=== PATIENT | female | born 1960 | race Caucasian/White ===

== ENCOUNTER 2019-06-21 07:49 | Outpatient (RCR) | payer MEDICAID, SELFPAY ==
--- NOTE | 2019-06-29 14:29 | HP.OTFCE_ITS ---
HP OT Functional Capacity Eval - Task Lift Floor (Occasional 1-33% of Day): 2lb Floor (Frequent 34-66% of Day): Negligible Floor (Constant 67-100% of Day): Negligible Floor PDL: Sedentary Knee (Occasional 1-33% of Day): 2lb Knee (Frequent 34-66% of Day): Negligible Knee (Constant 67-100% of Day): Negligible Knee PDL: Sedentary Waist (Occasional 1-33% of Day): 15lb Waist (Frequent 34-66% of Day): 8lb Waist (Constant 67-100% of Day): Negligible Waist PDL: Sedentary-Light Shoulder (Occasional 1-33% of Day): 2lb Shoulder (Frequent 34-66% of Day): Negligible Shoulder (Constant 67-100% of Day): Negligible Shoulder PDL: Sedentary Overhead (Occasional 1-33% of Day): 0 Overhead (Frequent 34-66% of Day): 0 Overhead (Constant 67-100% of Day): 0 Comments: refused to complete overhead lift. - Work Activity/Posture Bending: Occasional Ability (1-33% of day) Squatting: Occasional Ability (1-33% of day) Kneeling: Occasional Ability (1-33% of day) Reaching out: Occasional Ability (1-33% of day) Reaching up: Occasional Ability (1-33% of day) Sitting: Frequent Ability (34-66% of day) Walking: Frequent Ability (34-66% of day) Standing: Occasional Ability (1-33% of day) - Reference Duration Sedentary Sedentary Light Light Light Medium Medium Medium Heavy Very Heavy Heavy Occasional (0-33% of day) Frequent (34-66% of day) Constant (67-100% of day) 10 # Negligible Negligible 15 # 8 # Negligible 20 # 10# Negli. 35 # 18 # 7 # 50 # 25 # 10 # 75 # 100 # >100 # 38 # 50 # >50 # 15 # 20 # >20 # - Patient Information Height: 5 ft 5 in Weight:: 96.615 kg Hand Dominance: Right - Medical History Medical History Including Restrictions: Pt reports the following: cervical cancer, historectomy, toncilectomy, chronic thoracic back pain, transitional vertebra, ankle instability, fx R ankle with 6' plate 17 screws, chronic low back pain. Work accident May 09, 2010 resident fell as she was lifting them from toilet and she fell with resident - Diagnoses Diagnoses: Pt reports the following: cervical cancer, historectomy, toncilectomy, chronic thoracic back pain, transitional vertebra, ankle instability, fx R ankle with 6' plate 17 screws, chronic low back pain. - Symptoms Symptoms: Pt reports; burning, stabbing pain in base of spine constantly, pain goes over L shoulder primarily and makes hands go numb. Throbbing pain R ankle, states some screws are starting to come out. - Pain Pain: Pt reports 9/10 base of back burning, stabbing pain. R ankle throbbing pain constantly. 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 - ADLS ADLS: Pt lives in manufactored home 1 floor with 2 steps to enter w/ banister on 1 side. Lives alone, daughter lives behind her if would need help. Indep w/ BADLs, laundry, light housecleaning and simple meal prep tasks, children complete heavy meal prep. Family completes vaccuming and heavy cleaning. Tub/shower w/ grab bars, std toilet seats. AMB no device primarily and quad cane if R ankle is very sore. Pt drives. Daugters complete grocery shopping secondary to pt is to painful in back to make it through store. - Physical Examination ROM: BUE WFL, BLE WFL Strength: R UE 4/5, L UE 4-/5, R LE 4-/5, L LE 3+/5 Right Cocktail Server Strength Average: 22.66 Left Cocktail Server Strength Average: 11.66 Right Lateral Pinch Average: 4.66 Left Lateral Pinch Average: 2.33 Right Tripod Pinch Average: 7.00 Left Tripod Pinch Average: 4.33 Comments: Pt states pain L wrist with tripod pinch 8/10 sharp pain. Sensation: Numbness and tingling bilateral hands. States hands constantly feel like they are asleep. States arms are sometimes numb too. Monofilament test: R hand 2.44, L hand 2.44 Fine Motor: Occassionally has trouble with buttons and handwriting, pending if hands are tingling, R MF will cramp bad. 9 hole peg test Right hand 19.3 seconds, Left hand 21.6 seconds. Balance: Pt states has 2-3 falls a week, bathroom, out in yard, states R foot feels like it's not there. - Non Material Handling Activities Bendinx, 7x down to floor, pt states to dizzy to continue any further. Squattin x less than half way down, 5x less than half way down while using L hand supported on desk and using R hand on chair handrail to support self while standing. Pt unable to complete all squats secondary to increased back pain. Kneeling: able to complete 1x using L hand supported unable to complete any more secondary to decreased stability of R ankle. Reaching out/up: Reaching up while standing 1x, 10x, 5x fast, unable to complete 5 more at fast pace secondary to back pain. Reaching out to left and right side while standing 1x, 10x, 5x fast, unable to complete all reaching out while standing secondary to back pain. Walking: Completed 15 minute walk test around facility w/o rest break needed, after walk 10/10 back pain per pt. Standing: Pt able to stand for a few minutes at a time during evaluation. Sitting: Pt able to sit for 17 minutes in one sitting during beginning of evaluation, moving around in chair frequently for increased comfort through-out session. Climbing Stairs: Pt able to climb flight of 10 steps reciprocal movement holding onto bilateral handrails. - Dynamic Occasional Lifting Capacity Floor Lift: 2lb max Knee Lift: 2lb max Waist Lift: 15lb max Shoulder Lift: 2lb max Overhead Lift: refused to complete Carryinlb max Comments: Pt states baby is 14# and unable to lift her at home.
== END 2019-06-21 19:00 | disposition home or self-care (01) ==
LOC: OT 07:49
PROVIDERS: Family Provider Family Medicine; PCP Family Medicine; Visit Provider Physician Assistant
DX: M54.6 Pain in thoracic spine (principal); Q76.49 Other congenital malformations of spine, not associated with scoliosis; M25.371 Other instability, right ankle; M54.5 Low back pain; G89.29 Other chronic pain
CPT/HCPCS: 97165; 97167

== ENCOUNTER 2022-01-16 12:22 | Emergency (ER) | payer MEDICAID, SELFPAY ==
[2022-01-16 12:22] VITALS: BP 161/98; PULSE 90; RESP 18; TEMP 35.9; O2SAT 94; BMI 33.7
[2022-01-16 13:00] LABS: Mucous, Urine 0 SEEN /hpf (<or=2+); Squamous Epithelial Cells - UA 0 SEEN /hpf (5-10)
[2022-01-16 13:03] LABS: Color, Urine Yellow (Yellow); Glucose, Dipstick Normal (Normal); Ketone-Dipstick Negative (Negative); Leukocyte Esterase-Dipstick 25 /ul (Negative); Nitrite-Dipstick Negative (Negative); Occult Blood-Urine 250 /ul (Negative); Protein-Dipstick 30 mg/dl (Negative); Urine Bilirubin Dipstick Negative (Negative); Urine Clarity Sl. Cloudy (Clear); Urine Urobilinogen Normal (Normal)
[2022-01-16 13:15] LABS: Bacteria 1+ /hpf (None Seen); Red Blood Cells-Urine 25-50 SEEN /hpf (0-5); White Blood Cells 0-5 SEEN /hpf (0-5)
--- NOTE | 2022-01-16 13:42 | CT_ITS ---
STUDY: CT ABDOMEN AND PELVIS WITHOUT CONTRAST REASON FOR EXAM: Female, 61 years old. Kidney Stone RADIATION DOSAGE (If Supplied By Facility): CTDIvol = ( 16.36 ) mGy, DLP = ( 829.94 ) mGycm TECHNIQUE: Transaxial images were obtained from the dome of the diaphragm to the symphysis pubis without oral contrast, and without intravenous contrast. Sagittal and coronal images were reconstructed. Individualized dose optimization techniques were used for this CT. COMPARISON: None. FINDINGS: The visualized lung bases are unremarkable. The visualized portions of the heart are within normal limits. Normal liver. There are multiple gallstones. Normal spleen. Normal pancreas. Normal bilateral adrenal glands. Mild to moderate degree of right hydronephrosis with right perinephric and periureteric stranding due to a 7.7 mm calculus in the proximal portion of the right ureter causing obstruction. This also evidence of a 6.2 mm calculus in the proximal ureter just distal to the previously mentioned calculus. Tiny nonobstructive calculi in the lower pole calyx of the right kidney. Normal left kidney. There is a small hiatal hernia. Normal small intestine. There are multiple colonic diverticula consistent with diverticulosis. There is non-visualization of the appendix. There is diffuse atherosclerotic calcification of the abdominal aorta, without a demonstrated aneurysm. Normal inferior vena cava. Normal retroperitoneum. Normal urinary bladder. There is absence of the uterus consistent with a prior hysterectomy. Normal abdominal wall. There are mild degenerative changes of the visualized lumbar spine. CT/Abdomen/Pelvis without Cont IMPRESSION: There are 2 adjacent right ureteral proximal calculi causing obstruction with hydronephrosis of the right kidney. The larger calculus measures 7.7 mm. Nonobstructive calculi are seen in the lower pole calyx of the right kidney. Sigmoid diverticulosis. Multiple gallstones. Electronically Signed: Clem Jasmine MD at 14:06 EDT ,
[2022-01-16 13:54] LABS: Absolute Lymphocyte Count 2.87 X10^3/uL (0.83-4.51); Absolute Neutrophil Count 7.6 X10^3/uL (2.0-7.7); Basophil# 0.06 X10^3/uL; Basophil% 0.5 % (0-1); Eosinophil# 0.16 X10^3/uL; Eosinophils% 1.4 % (0-5); Hematocrit 42.3 % (37-47); Hemoglobin 14.5 g/dL (12.0-15.0); Lymphocyte # 2.87 X10^3/ul (0.83-4.51); Mean Corp Hgb Conc 34.3 g/dL (32-36); Mean Corpuscular Hgb 27.7 pg (27.0-32.0); Mean Corpuscular Volume 80.7 fL (81-99); Mean Platelet Vol. 8.7 fl (6.2-12.0); Monocyte# 0.71 X10^3/uL; Monocyte% 6.2 % (0-10); NRBC Flagged by Analyzer 0 % (0-5); Neutrophil # 7.64 X10^3/uL (2.7-7.7); Neutrophil % 66.4 % (47-70); Platelet Count 423 K/mm3 (150-450); RBC Distribution Width CV 14.4 % (11.6-14.6); RBC Distribution Width SD 42.1 fl (35.1-43.9); Red Blood Count 5.24 M/mm3 (4.2-5.4); White Blood Count 11.5 K/mm3 (4.4-11.0)
[2022-01-16] MEDS: Ketorolac 15 MG/ML Vial IV (14:01)
[2022-01-16] MEDS: Morphine 4 MG/ML Syringe IV ×2 (14:01→16:02)
[2022-01-16] MEDS: Ondansetron 4 MG/2 ML Vial IV (14:01)
[2022-01-16 14:06] LABS: Anion Gap 2 (5-15); BUN 14 mg/dL (7-18); BUN/Creat Ratio 16.6 RATIO (10-20); Calcium,Total 9.2 mg/dL (8.5-10.1); Chloride 110 mmol/L (98-107); Creatinine, Serum 0.84 mg/dL (0.55-1.02); EST Glomerular Filtration Rate 73 mL/min (>60); Est Glom Filt Rate - Afr Amer 88 mL/min (>60); Estimated Creatinine Clearance 64.09 ml/min; Glucose 110 mg/dL (74-106); Sodium Level 141 mmol/L (136-145)
[2022-01-16 15:15] LABS: Lipase 89 U/L (73-393)
[2022-01-16 15:17] LABS: AST(SGOT) 19 U/L (15-37); Alanine Aminotransfer ALT/SGPT 28 U/L (13-56); Albumin, Serum 3.4 g/dL (3.2-5.0); Alkaline Phosphatase 88 U/L (45-117); Bilirubin, Direct 0.09 mg/dL (0.00-0.30); Globulin 3.5 g/dL (2.2-4.2); Protein, Total 6.9 g/dL (6.4-8.2)
--- NOTE | 2022-01-16 15:35 | EDS_ITS ---
HPI HPI - Female History of Present Illness Chief Complaint: Flank Pain Narrative Narrative: Patient presented with right flank pain since earlier today. She has no history of kidney stones but does report hematuria. She states she has not had this problem in the past. Patient expresses that she has some nausea but has not vomited. She is able to go throughout most of the day with waves of pain coming and going. She denies diarrhea or constipation. No vaginal complaints. PFSH PFSH Home Medications ondansetron 4 mg PO Q8H PRN #14 tab 01/16/22 [Rx Last Taken Unknown] oxycodone-acetaminophen [Endocet] 1 tab PO Q8H PRN 3 Days #12 tab 01/16/22 [Rx Last Taken Unknown] Allergy/AdvReac Type Severity Reaction Status Date / Time No Known Allergies Allergy Verified 01/16/22 12:24 Social History Smoking Status: Never smoker ROS ROS ED Constitutional Constitutional ED: Denies chills or fever(s) Eyes Eyes: Denies blurry vision or diplopia ENT ENT ED: Denies rhinorrhea or sore throat Cardiovascular Cardiovascular: Denies chest pain or palpitations Respiratory/Chest Respiratory/Chest: Denies cough or dyspnea Gastrointestinal Gastrointestinal: Reports nausea; Denies abdominal pain Genitourinary Genitourinary ED: Reports hematuria; Denies urinary frequency Musculoskeletal Musculoskeletal: Reports other Details: Right flank pain ; Denies arthralgias or myalgias Integumentary Denies rash Neurologic Neurologic: Denies headache(s) or weakness Psychiatric Psychiatric: Denies anxiety or depression EXAM Physical Exam Const Vital Signs: 01/16/22 12:22 Temperature 96.7 F L Temperature Source Temporal Pulse Rate 90 Respiratory Rate 18 Blood Pressure 161/98 H Blood Pressure Mean 119 Pulse Ox 94 Oxygen Delivery Method Room Air Positive well nourished General Appearance ED: NAD; Negative for pallor HEENT Reports moist mucous membranes Negative for trauma Eyes PERRL and EOMs intact bilaterally Resp normal respiratory effort and clear to auscultation bilaterally Cardio regular rate and regular rhythm GI normal to inspection, nondistended, normoactive bowel sounds Back/Spine General Back: CVA tenderness right Neuro oriented x3 Sensorium / Orientation: alert Psych mental status grossly normal Skin no rashes or lesions noted General Skin Exam: Negative for jaundice or pallor MDM MDM MDM Narrative Medical decision making narrative: Patient presenting with right flank pain that started hurting today. She does express she has nausea. CVA tenderness is on the right. I did blood work and her CBC is unremarkable. BMP shows normal renal function and electrolytes. Urinalysis is negative for infection but does show occult blood. Patient treated with morphine, Zofran, Toradol and had good relief of her pain. CT of the abdomen pelvis without contrast shows 2 adjacent kidney stones the largest of which is 7.7. I did teen counselor the patient that these are less likely to pass due to their size, unfortunately we do not have urology here today. I offered to transfer the patient but she stated that her pain was okay with the pain medicine she was given. She request another dose of morphine and she was given oxycodone and Zofran for home. Of note the patient did have gallstones in her gallbladder however her LFTs and lipase are normal. I do not believe this is her gallbladder. I gave her return precautions. She will have follow-up with Dr. Ordoñez Impression: 1. Ureteral calculi 2. Hematuria 3. Right hydronephrosis Lab Data Attestation: I reviewed the patient's lab results. Labs: Laboratory Results - last 24 hr 01/16/22 01/16/22 01/16/22 12:56 13:40 13:40 WBC 11.5 H RBC 5.24 Hgb 14.5 Hct 42.3 MCV 80.7 L MCH 27.7 MCHC 34.3 RDW Std Deviation 42.1 RDW Coeff of [place] 14.4 Plt Count 423 MPV 8.7 Immature Gran % (Auto) 0.500 Neut % (Auto) 66.4 Lymph % (Auto) 25.0 [place] % (Auto) 6.2 Eos % (Auto) 1.4 Baso % (Auto) 0.5 Absolute Neuts (auto) 7.6 Absolute Lymphs (auto) 2.87 Nucleated RBC % 0 Sodium 141 Potassium 4.0 Chloride 110 H Carbon Dioxide 29.0 Anion Gap 2 L BUN 14 Creatinine 0.84 Estim Creat Clear Calc 64.09 Est GFR (MDRD) Af Amer 88 Est GFR (MDRD) Non-Af 73 BUN/Creatinine Ratio 16.6 Glucose 110 H Calcium 9.2 Total Bilirubin Direct Bilirubin AST ALT Alkaline Phosphatase Total Protein Albumin Globulin Lipase Urine Color Yellow Urine Clarity Sl. Cloudy Urine pH 7.0 Ur Specific [place] 1.010 Urine Protein 30 H Urine Glucose (UA) Normal Urine Ketones Negative Urine Occult Blood 250 H Urine Nitrite Negative Urine Bilirubin Negative Urine Urobilinogen Normal Ur Leukocyte Esterase 25 H Urine RBC 25-50 SEEN Urine WBC 0-5 SEEN Ur Squamous Epith Cells 0 SEEN Urine Bacteria 1+ Urine Mucus 0 SEEN 01/16/22 01/16/22 13:40 13:40 WBC RBC Hgb Hct MCV MCH MCHC RDW Std Deviation RDW Coeff of [place] Plt Count MPV Immature Gran % (Auto) Neut % (Auto) Lymph % (Auto) [place] % (Auto) Eos % (Auto) Baso % (Auto) Absolute Neuts (auto) Absolute Lymphs (auto) Nucleated RBC % Sodium Potassium Chloride Carbon Dioxide Anion Gap BUN Creatinine Estim Creat Clear Calc Est GFR (MDRD) Af Amer Est GFR (MDRD) Non-Af BUN/Creatinine Ratio Glucose Calcium Total Bilirubin 0.30 Direct Bilirubin 0.09 AST 19 ALT 28 Alkaline Phosphatase 88 Total Protein 6.9 Albumin 3.4 Globulin 3.5 Lipase 89 Urine Color Urine Clarity Urine pH Ur Specific [place] Urine Protein Urine Glucose (UA) Urine Ketones Urine Occult Blood Urine Nitrite Urine Bilirubin Urine Urobilinogen Ur Leukocyte Esterase Urine RBC Urine WBC Ur Squamous Epith Cells Urine Bacteria Urine Mucus Radiography Diagnostic Testing: Clinical Impression(s) from Imaging Studies Abdomen/Pelvis CT 01/16/22 13:42 IMPRESSION: There are 2 adjacent right ureteral proximal calculi causing obstruction with hydronephrosis of the right kidney. The larger calculus measures 7.7 mm. Nonobstructive calculi are seen in the lower pole calyx of the right kidney. Sigmoid diverticulosis. Multiple gallstones. Electronically Signed: Clem Jasmine MD at 14:06 EDT , Discharge Plan Triage Chief Complaint: Flank Pain ED Provider: Luciano Amado Dx/Rx/DC Orders Prescriptions: New oxycodone-acetaminophen [Endocet] 5-325 mg tablet 1 tab PO Q8H PRN (Reason: pain) 3 Days Qty: 12 RF: 0 ondansetron 4 mg tablet,disintegrating 4 mg PO Q8H PRN (Reason: nausea and vomiting) Qty: 14 RF: 0 Primary Care Provider: Noel Perez Referrals: Rafa Ordoñez MD [STAFF PHYSICIAN] - As soon as possible Noel Perez MD [Primary Care Provider] - Disposition Disposition: Home, Self Care
[2022-01-16] MEDS: oxyCODONE 5 MG Tablet PO (16:03)
== END 2022-01-16 16:09 | disposition home or self-care (01) ==
PROVIDERS: Emergency Provider Student in an Organized Health Care Education/Training Program; PCP Family Medicine; Visit Provider Student in an Organized Health Care Education/Training Program
DX: N13.2 Hydronephrosis with renal and ureteral calculous obstruction (principal); R31.9 Hematuria, unspecified
CPT/HCPCS: 74176; 80048; 80076; 81001; 83690; 85025; 96374; 96375; 96376; 99284; A4216; J2405

== ENCOUNTER 2022-02-02 17:58 | Emergency (ER) | payer MEDICAID, SELFPAY ==
[2022-02-02] VITALS (10 sets, daily range): BP systolic 160–205; BP diastolic 88–103; PULSE 67–94; RESP 18; TEMP 36.6; O2SAT 92–99; BMI 33.0
--- NOTE | 2022-02-02 18:07 | EDS_ITS ---
HPI History of Present Illness Chief Complaint: Flank Pain Detail of Chief Complaint: Acute exacerbation of right flank pain Informant: patient Onset/Context/Timing Onset: Hours Context: Sudden Onset Timing: Continuous Quality: Colicky Location: Right flank radiating anteriorly Current Severity: Severe Maximum Severity: Severe Worsened by: Nothing Relieved by: Nothing Associated Symptoms Associated Symptoms: Nausea Narrative Narrative: Patient is a 61-year-old woman who was seen last month and diagnosed with hydronephrosis due to 2 obstructing right ureteral stones measuring 7.7 and 6.2 mm. The 6.2 mm stone was the more distal of the 2. She is scheduled to see a urologist in [place]. She has an appointment scheduled for February 10. She do es report feeling hot when the pain gets severe. She states her nausea worsens when the pain gets severe. She was prescribed Percocet. She denies dysuria, frequency or hematuria. She does report urgency. Prior similar symptoms: Yes Recent Illness/Hospitalization: Yes PFSH [facility] Medical History (Updated 02/02/22 @ 20:[address] Phil Pablo MD) High cholesterol Home Medications ondansetron 4 mg PO Q8H PRN #14 tab 01/16/22 [Rx Last Taken Unknown] oxycodone-acetaminophen [Endocet] 1 tab PO Q8H PRN 3 Days #12 tab 01/16/22 [Rx Last Taken Unknown] atorvastatin 20 mg PO DAILY 02/02/22 [History Last Taken Unknown] tamsulosin 0.4 mg PO DAILY 02/02/22 [History Last Taken Unknown] Allergy/AdvReac Type Severity Reaction Status Date / Time ketorolac [From Toradol] Allergy Itching Verified 02/02/22 18:03 tramadol Allergy Other Verified 02/02/22 18:02 Social History (Updated 02/02/22 @ 18:[address] Phil Pablo MD) household members: none Smoking Status: Never smoker substance use type: does not use ROS ROS ED Constitutional Constitutional ED: Denies chills, fever(s), subjective, sweats or weight loss Eyes Eyes: Denies blurry vision, change in vision or diplopia ENT ENT ED: Denies ear pain, rhinorrhea or sore throat Cardiovascular Cardiovascular: Denies chest pain or palpitations Respiratory/Chest Respiratory/Chest: Denies cough, dyspnea or dyspnea on exertion Gastrointestinal Gastrointestinal: Reports abdominal pain and nausea; Denies constipation, diarrhea, melena or vomiting Genitourinary Genitourinary ED: Reports other Details: Urgency ; Denies dysuria, hematuria or urinary frequency Musculoskeletal Musculoskeletal: Reports back pain; Denies arthralgias, myalgias or neck pain Integumentary Denies rash Neurologic Neurologic: Denies paresthesias or weakness Endocrine Endocrinology: Denies polydipsia, polyphagia or polyuria EXAM Physical Exam Const Vital Signs: 02/02/22 17:59 02/02/22 18:06 02/02/22 18:07 Temperature 97.9 F 97.9 F Temperature Source Oral Oral Pulse Rate 69 69 67 Respiratory Rate 18 18 Blood Pressure 205/102 H 205/102 H 205/102 H Blood Pressure Mean 136 136 136 Pulse Ox 97 97 99 Oxygen Delivery Method Room Air Room Air Room Air 02/02/22 19:08 02/02/22 20:09 02/02/22 20:15 Temperature Temperature Source Pulse Rate 94 Respiratory Rate 18 Blood Pressure 160/101 H 166/88 H Blood Pressure Mean 120 114 Pulse Ox 94 94 Oxygen Delivery Method Room Air Room Air 02/02/22 21:06 02/02/22 21:46 02/02/22 22:54 Temperature Temperature Source Pulse Rate 85 Respiratory Rate Blood Pressure 186/102 H 186/102 H 176/100 H Blood Pressure Mean 130 130 125 Pulse Ox 94 92 Oxygen Delivery Method Room Air Room Air 02/02/22 23:02 Temperature Temperature Source Pulse Rate Respiratory Rate Blood Pressure 188/103 H Blood Pressure Mean 131 Pulse Ox 93 Oxygen Delivery Method Positive well nourished and well developed General Appearance ED: well developed; Negative for cyanotic, diaphoretic, NAD or pallor HEENT Reports TM's clear and dry mucous membranes Negative for trauma or tenderness Tympanic Membrane ED: Yes TM's clear Mouth ED: Yes dry mucous membranes Mouth: dry mucous membranes Eyes PERRL and EOMs intact bilaterally General Eye ED: Negative for pale conjunctiva or scleral icterus Neck no lymphadenopathy, supple and no JVD Chest Wall inspection of chest normal and palpation of chest normal Resp normal respiratory effort and clear to auscultation bilaterally Effort and Inspection: Negative for pain with movement Cardio regular rate, regular rhythm, S1 normal heart sound, S2 normal heart sound and no murmurs GI normal to inspection, nondistended, normoactive bowel sounds and non-distended; Negative for non-tender or hepatosplenomegaly Inspection: Negative for abdominal distention Auscultation: hypoactive bowel sounds Palpation: soft and tender other (To deep palpation over the right kidney.) Back/Spine General Back: CVA tenderness right Cervical Spine: Negative for cervical spine tenderness Thoracic Spine / Upper Back: Negative for thoracic spinal tenderness or paraspinal muscle tenderness Extremity normal to inspection General Extremety ED: Negative for edema or tenderness General Extremity: Negative for edema Neuro oriented x3, CN's II-XII intact bilaterally and no sensory deficits noted Sensorium / Orientation: alert Motor Exam: strength 5/5 throughout Psych mental status grossly normal Skin no rashes or lesions noted and no wounds General Skin Exam: Negative for jaundice or pallor MDM MDM MDM Narrative Medical decision making narrative: Prior records reviewed. Patient has 2 obstructing right ureteral stones. Feel this is the cause of her pain. She states she had an ultrasound. Reviewed prior records under the chart portion of the document and there is no report or images available. Will look on the radiology report. Patient received 4 mg of Zofran and 100 mcg of fentanyl prior to arrival. She is still in obvious discomfort. She received an additional 4 mg of Zofran and 1 mg of Dilaudid. Patient's pain is now a 9. She was given additional dose of Dilaudid. She still appears uncomfortable. She is no longer pale or writhing in the bed. Lab Data Attestation: I reviewed the patient's lab results. Lab results narrative: Creatinine has gone from 0.8-1.54 and GFR is decreased from 73-37. Prior BUN and creatinine were was obtained approximately 2 weeks ago. Will call her urologist and since she is required significant mount of opiate analgesia and Toradol is an appropriate/relatively contraindicated she will in all likelihood need admission for pain management and placement of ureteral stent. Urine does not indicate evidence of infection. Pulse ox at rest with good waveform is 90-91%. Labs: Laboratory Results - last 24 hr 02/02/22 02/02/22 18:55 19:20 Sodium 139 Potassium 4.2 Chloride 110 H Carbon Dioxide 27.0 Anion Gap 2 L BUN 29 H Creatinine 1.54 H Estim Creat Clear Calc 34.96 Est GFR (MDRD) Af Amer 44 L Est GFR (MDRD) Non-Af 37 L BUN/Creatinine Ratio 18.8 Glucose 142 H Calcium 8.9 Urine Color Yellow Urine Clarity Clear Urine pH 6.0 Ur Specific [place] 1.025 Urine Protein 15 H Urine Glucose (UA) Normal Urine Ketones 5 H Urine Occult Blood 10 H Urine Nitrite Negative Urine Bilirubin Negative Urine Urobilinogen Normal Ur Leukocyte Esterase Negative Urine RBC 0-5 SEEN Urine WBC 0 SEEN Ur Squamous Epith Cells 0-5 SEEN Urine Bacteria 0 SEEN Urine Mucus 0 SEEN Radiography Diagnostic Testing: Clinical Impression(s) from Imaging Studies KUB X-Ray 02/02/22 21:40 IMPRESSION: 1. Presence of a 4 mm x 2 mm calcification overlying the upper right sacrum that may represent a right ureteral calculus. 2. Presence of a 9 mm in diameter calcification in the region of the right mid sacrum that may represent a right ureteral calculus. 3. No evidence of calcification or calculi in the region of the kidneys, left ureter, or bladder. 4. Mild constipation. 5. No abdominal organomegaly. Electronically Signed: Scottie Ding MD at 23:09 EDT , Discharge Plan Triage Chief Complaint: Flank Pain ED Provider: Phil Pablo Dx/Rx/DC Orders Clinical Impression: Hydronephrosis concurrent with and due to calculi of kidney and ureter, CATIE (acute kidney injury) Prescriptions: No Action oxycodone-acetaminophen [Endocet] 5-325 mg tablet 1 tab PO Q8H PRN (Reason: pain) 3 Days Qty: 12 RF: 0 ondansetron 4 mg tablet,disintegrating 4 mg PO Q8H PRN (Reason: nausea and vomiting) Qty: 14 RF: 0 atorvastatin 20 mg tablet 20 mg PO DAILY RF: 0 tamsulosin 0.4 mg capsule 0.4 mg PO DAILY RF: 0 Primary Care Provider: Noel Perez Referrals: Noel Perez MD [Primary Care Provider] - Disposition Disposition: Acute Care Hospital Discharge Location: [facility]
[2022-02-02] MEDS: 0.9% Normal Saline 1,000 ML 250 ML IV (18:14)
[2022-02-02] MEDS: HYDROmorphone 1 MG/ML Syringe IV ×2 (18:14→19:04)
[2022-02-02] MEDS: Ondansetron 4 MG/2 ML Vial IV (18:19)
[2022-02-02 19:04] LABS: Bacteria 0 SEEN /hpf (None Seen); Mucous, Urine 0 SEEN /hpf (<or=2+); White Blood Cells 0 SEEN /hpf (0-5)
[2022-02-02 19:05] LABS: Color, Urine Yellow (Yellow); Glucose, Dipstick Normal (Normal); Ketone-Dipstick 5 mg/dl (Negative); Leukocyte Esterase-Dipstick Negative /ul (Negative); Nitrite-Dipstick Negative (Negative); Occult Blood-Urine 10 /ul (Negative); Protein-Dipstick 15 mg/dl (Negative); Specific Gravity, Urine 1.025 (1.002-1.030); Urine Bilirubin Dipstick Negative (Negative); Urine Clarity Clear (Clear); Urine Urobilinogen Normal (Normal)
[2022-02-02 19:11] LABS: Red Blood Cells-Urine 0-5 SEEN /hpf (0-5); Squamous Epithelial Cells - UA 0-5 SEEN /hpf (5-10)
[2022-02-02] MEDS: Famotidine 20 MG Tablet PO (19:14)
[2022-02-02 19:43] LABS: Anion Gap 2 (5-15); BUN 29 mg/dL (7-18); BUN/Creat Ratio 18.8 RATIO (10-20); Calcium,Total 8.9 mg/dL (8.5-10.1); Chloride 110 mmol/L (98-107); Creatinine, Serum 1.54 mg/dL (0.55-1.02); EST Glomerular Filtration Rate 37 mL/min (>60); Est Glom Filt Rate - Afr Amer 44 mL/min (>60); Estimated Creatinine Clearance 34.96 ml/min; Glucose 142 mg/dL (74-106); Potassium 4.2 mmol/L (3.5-5.1); Sodium Level 139 mmol/L (136-145)
--- NOTE | 2022-02-02 21:40 | RAD_ITS ---
STUDY: [id number]/PELVIS--2 VIEWS OF 2150 HOURS ON 02/02/2022 REASON FOR EXAM: Female, 61 years old. Proximal ureteral stones right TECHNIQUE: 2 views of the abdomen and pelvis were obtained per protocol. COMPARISON: None. FINDINGS: There is evidence of calcification or calculi in the region of the right kidney or proximal ureter. There is a 4 mm x 2 mm calcification overlying the upper right sacrum and a 9 mm in diameter calcification in the region of the right mid sacrum that may represent right ureteral calculi. There is no evidence of calcification or calculi in the region of the left kidney or ureter. There is no calcification or calculi in region of the bladder. There is mild constipation. There is no abdominal organomegaly. RAD/Abdomen Single View (Portable) IMPRESSION: 1. Presence of a 4 mm x 2 mm calcification overlying the upper right sacrum that may represent a right ureteral calculus. 2. Presence of a 9 mm in diameter calcification in the region of the right mid sacrum that may represent a right ureteral calculus. 3. No evidence of calcification or calculi in the region of the kidneys, left ureter, or bladder. 4. Mild constipation. 5. No abdominal organomegaly. Electronically Signed: Scottie Ding MD at 23:09 EDT ,
[2022-02-02] MEDS: HYDROmorphone 0.5 MG/0.5 ML SYRINGE IV ×2 (22:24→22:54)
--- NOTE | 2022-02-02 22:44 | ED.RN ---
PT IS REFUSING TO GO TO [facility], STATES YOU CANT JUST SEND PEOPLE SOMEWHERE WITH OUT ASKING THEM. PT'S UROLOGIST IS AT [facility]. PT WANTS TO GO TO [facility], PER DR. ZABALA, THERE ARE 60 PEOPLE AHEAD AWAITING FOR BEDS. PT IS DEMANDING TO BE DISCHARGED, STATES THAT WE HAVE NOT DONE ANYTHING FOR HER. PT'S STATES IT IS RIDICULOUS THAT A HOSPITAL THIS SIZE DOES NOT HAVE SOMEONE WHO CAN DO SURGERY. IT IS A HOSPITAL. THIS RN ATTEMPTED TO EXPLAIN THAT HOSPITALS CAN NOT DO EVERY TYPE OF SURGERY, THAT IS WHY PT'S ARE TRANSPORTED. PT'S STATED THAT IS RIDICULOUS, IT IS A HOSPITAL AND THIS IS AN EMERENCY THEREFORE THEY SHOULD BE ABLE TO DO ANYTHING THAT NEEDS TO BE DONE.
--- NOTE | 2022-02-02 22:55 | ED.RN ---
THIS RN WENT TO CHECK ON THE PT'S PAIN AFTER DILAUDID. PT DEMANDING TO SEE THE DR., SITTING THERE SHAKING HIS HEAD AT THIS RN, GRUMBLING BECAUSE THE DR IS NOT AT HIS 'S BEDSIDE. THIS RN ATTEMPTED TO EXPLAIN THAT THE DR. IS WITH A PT THAT IS CRITICAL, NOT THAT HIS 'S PAIN IS NOT IMPORTANT BUT THAT THE OTHER PT REQUIRED MULTIPLE STAFF INCLUDING THE DR AT THIS TIME. CONTINUE TO COMPLAIN THAT THE DR. SHOULD BE IN THE ROOM RIGHT NOW, AND THIS EXPLAINED AGAIN THAT THE OTHER PT WAS CRITICAL AND THE DR WAS IN THE MIDDLE OF A CRITICAL PROCEDURE. AT THIS POINT THE RN WALKED OUT OF THE ROOM, PT AND ARE NOT RECEPTIVE TO EXPLAINATION. ARE OBTAINED ANOTHER VERBAL ORDER FOR DILAUDID.
--- NOTE | 2022-02-02 23:34 | ED.RN ---
dr andersen spoke with pt, pt is willing to go to [facility].
[2022-02-03 00:38] VITALS: BP 120/74; PULSE 76; O2SAT 92
[2022-02-03] MEDS: Ondansetron 4 MG/2 ML Vial IV (02:08)
[2022-02-03] MEDS: HYDROmorphone 1 MG/ML Syringe IV (02:09)
[2022-02-03 02:15] VITALS: BP 175/103; PULSE 83; RESP 20; O2SAT 95
== END 2022-02-03 02:16 | disposition short-term general hospital (02) ==
PROVIDERS: Emergency Provider Emergency Medicine; PCP Family Medicine; Visit Provider Emergency Medicine
DX: N13.2 Hydronephrosis with renal and ureteral calculous obstruction (principal); N17.9 Acute kidney failure, unspecified; E78.00 Pure hypercholesterolemia, unspecified
CPT/HCPCS: 74018; 80048; 81001; 87086; 87088; 87811; 96361; 96374; 96375; 96376; 99285; J7030; A4216; J2405